=== PATIENT | female | born 1990 | race Caucasian/White ===

== ENCOUNTER 2018-10-29 05:46 | Day surgery (SDC) | payer OTHER ==
[2018-10-26 10:04] LABS: BASOPHILS # (AUTO) 0.06 x10^3/uL (0-0.1); BASOPHILS % (AUTO) 1 % (0-1); EOSINOPHILS # (AUTO) 0.14 x10^3/uL (0-0.4); EOSINOPHILS % (AUTO) 1 % (1-7); LYMPHOCYTES # (AUTO) 3.11 x10^3/uL (1-3.4); LYMPHOCYTES % (AUTO) 27 % (22-44); MD NO; MEAN CORPUSCULAR HEMOGLOBIN 26.9 pg (27.0-34.8); MEAN CORPUSCULAR HGB CONC 32.9 g/dL (32.4-35.8); MEAN CORPUSCULAR VOLUME 81.8 fL (80-100); MEAN PLATELET VOLUME 8.5 fL (7.4-10.4); MONOCYTES % (AUTO) 5 % (2-9); NEUTROPHILS # (AUTO) 7.79 x10^3/uL (1.8-6.8); NEUTROPHILS % (AUTO) 67 % (42-75); PLATELET COUNT 305 x10^3/uL (130-400); RED BLOOD COUNT 4.57 x10^6/uL (3.82-5.3); RED CELL DISTRIBUTION WIDTH 16.1 % (9.6-15.2)
[2018-10-26 10:15] LABS: ALBUMIN 3.6 g/dL (3.4-5.0); ANION GAP 5 mmol/L (5-15); CALCIUM 9.3 mg/dL (8.5-10.1); CHLORIDE 109 mmol/L (98-107)
[2018-10-26 10:22] LABS: ALANINE AMINOTRANSFERASE 26 U/L (12-78); ALKALINE PHOSPHATASE 66 U/L (45-117); BILIRUBIN,TOTAL 0.3 mg/dL (0.2-1.0); CREATININE 0.66 mg/dL (0.55-1.02); TOTAL PROTEIN 7.4 g/dL (6.4-8.2)
[2018-10-26 10:38] LABS: MICROSCOPIC NOT IND
[2018-10-26 10:58] LABS: CULTURE INDICATED? NO
[~2018-10-29] VITALS: Ht 175.3 cm; Wt 146.8 kg
[~2018-10-29 05:46] MED LIST: ALLO100T30 PO; CHOL2000 PO; CIPR500T87 PO; DOCO200C3 PO; LORC10TA PO; MEDR10TA PO; METF500T17 PO; ONDA4TAB7 PO; OXYC-302 PO; PHEN15CA2 PO; TOPI25CA5 PO
[2018-10-29 06:26] VITALS: BP 129/87
[2018-10-29] MEDS ORDERED: BUPIVACAINE/PF 0.25% ONE (06:38)
[2018-10-29] MEDS ORDERED: LACTATED RINGERS 1,000 ML IV SCH (06:48)
[2018-10-29] MEDS ORDERED: MIDAZOLAM 1 MG/ML, 2ML ONE (07:27)
[2018-10-29] MEDS ORDERED: FENTANYL PF 100 MCG/2ML ONE ×2 (07:27→07:57)
[2018-10-29] MEDS ORDERED: DIAZEPAM 5 MG TABLET PO ONE (07:30)
[2018-10-29] MEDS ORDERED: ACETAMINOPHEN 500 MG TABLET PO ONE (07:30)
[2018-10-29] MEDS ORDERED: ONDANSETRON 2MG/ML, 2ML ONE (07:57)
[2018-10-29] MEDS ORDERED: GLYCOPYRROLATE 0.2MG/1ML, 5ML ONE (07:57)
[2018-10-29] MEDS ORDERED: DEXAMETHASONE 4 MG/ML, 1ML ONE (07:57)
[2018-10-29] MEDS ORDERED: SUCCINYLCHOLINE 20 MG/ML, 10ML ONE (07:57)
[2018-10-29] MEDS ORDERED: ROCURONIUM 10MG/ML,5ML ONE (07:57)
[2018-10-29] MEDS ORDERED: PROPOFOL 10 MG/ML, 20ML ONE (07:57)
[2018-10-29] MEDS ORDERED: NEOSTIGMINE 1 MG/ML, 10ML ONE (07:57)
[2018-10-29] MEDS ORDERED: CEFAZOLIN 1,000 MG ONE (07:57)
[2018-10-29] MEDS ORDERED: MEPERIDINE/PF 25MG/0.5ML IVPush PRN (08:00)
[2018-10-29] MEDS ORDERED: ONDANSETRON 2MG/ML, 2ML IV PRN (08:00)
[2018-10-29] MEDS ORDERED: PROMETHAZINE 25 MG/ML, 1ML IM PRN (08:00)
[2018-10-29] MEDS ORDERED: PROMETHAZINE 25 MG/ML, 1ML IV PRN (08:00)
[2018-10-29] MEDS ORDERED: HYDROmorphone 2 MG/ML, 1ML IVPush PRN (08:00)
[2018-10-29] MEDS ORDERED: ONDANSETRON ODT 8 MG PO PRN (08:00)
[2018-10-29] MEDS ORDERED: FENTANYL PF 100 MCG/2ML IV PRN (08:00)
[2018-10-29] MEDS ORDERED: OXYcodone 5 MG/5 ML ORAL.SOL UDC PO PRN (08:00)
[2018-10-29] MEDS ORDERED: SILVER NITRATE STICK TP ONE (08:44)
[2018-10-29] MEDS ORDERED: PROMETHAZINE 25 MG/ML, 1ML ONE (09:06)
== END 2018-10-29 11:35 | disposition home or self-care (01) ==
LOC: OUT 05:46
PROVIDERS: ATTEND Obstetrics & Gynecology Reproductive Endocrinology
DX: N84.0 Polyp of corpus uteri (principal); N92.1 Excessive and frequent menstruation with irregular cycle; G43.909 Migraine, unspecified, not intractable, without status migrainosus; Z79.899 Other long term (current) drug therapy
CPT/HCPCS: 36415; 58558; 80053; 81003; 82962; 84702; 85025; 88305; J0330; J0690; J1100; J2250; J2405; J2550; J2704; J2710; J3010; J3490; J7120

== ENCOUNTER → 2019-08-16 | Outpatient (CLI) | payer OTHER ==
[~2019-08-16] MED LIST changes: +DESO1TAB72 PO; +PREN1TAB10 PO
[2019-08-16 16:22] LABS: MICROSCOPIC NOT IND
[2019-08-16 16:34] LABS: CULTURE INDICATED? NO
[2019-08-16 16:53] LABS: BASOPHILS # (AUTO) 0.06 x10^3/uL (0-0.1); BASOPHILS % (AUTO) 1 % (0-1); EOSINOPHILS # (AUTO) 0.13 x10^3/uL (0-0.4); EOSINOPHILS % (AUTO) 1 % (1-7); LYMPHOCYTES # (AUTO) 3.24 x10^3/uL (1-3.4); LYMPHOCYTES % (AUTO) 29 % (22-44); MD NO; MEAN CORPUSCULAR HEMOGLOBIN 27.1 pg (27.0-34.8); MEAN CORPUSCULAR HGB CONC 32.9 g/dL (32.4-35.8); MEAN CORPUSCULAR VOLUME 82.5 fL (80-100); MEAN PLATELET VOLUME 8.4 fL (7.4-10.4); MONOCYTES # (AUTO) 0.77 x10^3/uL (0.2-0.8); MONOCYTES % (AUTO) 7 % (2-9); NEUTROPHILS # (AUTO) 6.84 x10^3/uL (1.8-6.8); NEUTROPHILS % (AUTO) 62 % (42-75); PLATELET COUNT 327 x10^3/uL (130-400); RED BLOOD COUNT 4.48 x10^6/uL (3.82-5.3); RED CELL DISTRIBUTION WIDTH 14.8 % (9.6-15.2)
== END | disposition home or self-care (01) ==
LOC: STAR 15:18
PROVIDERS: ATTEND Obstetrics & Gynecology Reproductive Endocrinology
DX: Z01.818 Encounter for other preprocedural examination (principal)
CPT/HCPCS: 36415; 81003; 84702; 85025

== ENCOUNTER 2019-08-26 11:10 | Day surgery (SDC) | payer OTHER ==
[~2019-08-26] VITALS: Ht 175.3 cm; Wt 145.7 kg
[~2019-08-26 11:10] MED LIST changes: -DESO1TAB72 PO; +DESO1TAB89 PO
[2019-08-26 11:43] VITALS: BP 130/72
[2019-08-26] MEDS ORDERED: LACTATED RINGERS 1,000 ML IV SCH (11:47)
[2019-08-26 12:15] LABS: HCG UR SG 1.025 (1.003-1.030)
[2019-08-26] MEDS ORDERED: BUPIVACAINE/PF 0.25% ONE (12:55)
[2019-08-26] MEDS ORDERED: ONDANSETRON 2MG/ML, 2ML ONE (14:01)
[2019-08-26] MEDS ORDERED: PROPOFOL 10 MG/ML, 20ML ONE (14:01)
[2019-08-26] MEDS ORDERED: DEXAMETHASONE 4 MG/ML, 1ML ONE (14:01)
[2019-08-26] MEDS ORDERED: SUCCINYLCHOLINE 20 MG/ML, 10ML ONE (14:01)
[2019-08-26] MEDS ORDERED: OXYcodone 5 MG/5 ML ORAL.SOL UDC PO PRN (15:00)
[2019-08-26] MEDS ORDERED: KETOROLAC 30 MG/1 ML IV PRN (15:00)
[2019-08-26] MEDS ORDERED: ALBUTEROL SULFATE 2.5 MG/3 ML NPPB PRN (15:00)
[2019-08-26] MEDS ORDERED: FENTANYL PF 100 MCG/2ML IV PRN (15:00)
[2019-08-26] MEDS ORDERED: ONDANSETRON 2MG/ML, 2ML IVPush PRN (15:00)
[2019-08-26] MEDS ORDERED: DIAZEPAM 5 MG/ML, 2ML IV PRN ×2 (15:00)
[2019-08-26] MEDS ORDERED: hydrALAzine 20 MG/ML, 1ML IV PRN (15:00)
[2019-08-26] MEDS ORDERED: LABETALOL 5MG/ML, 20ML IV PRN (15:00)
[2019-08-26] MEDS ORDERED: MEPERIDINE/PF 25MG/0.5ML IVPush PRN (15:00)
[2019-08-26] MEDS ORDERED: HYDROmorphone 1 MG/ML, 1ML INJ IV PRN (15:00)
[2019-08-26] MEDS ORDERED: METOCLOPRAMIDE 5 MG/ML, 2ML IV PRN (15:00)
[2019-08-26] MEDS ORDERED: PROMETHAZINE 25 MG/ML, 1ML IV PRN (15:00)
[2019-08-26] MEDS ORDERED: FENTANYL PF 100 MCG/2ML ONE (15:08)
[2019-08-26] MEDS ORDERED: OXYcodone 5 MG/5 ML ORAL.SOL UDC ONE ×2 (15:08)
== END 2019-08-26 16:50 | disposition home or self-care (01) ==
LOC: OUT 11:10
PROVIDERS: ATTEND Obstetrics & Gynecology Reproductive Endocrinology
DX: O03.4 Incomplete spontaneous abortion without complication (principal); M10.9 Gout, unspecified; Z98.84 Bariatric surgery status; Z98.890 Other specified postprocedural states
CPT/HCPCS: 58558; 81025; J0330; J1100; J2405; J2704; J3010; J3490; J7120